=== PATIENT | female | born 1965 | race Caucasian/White ===

== ENCOUNTER 2020-12-08 07:33 | Inpatient (IN) ==
--- NOTE | 2020-11-20 09:01 | PAT Medication Instructions ---
Medication Instructions Date of Service November 20, 2020 Home Medications cetirizine 10 mg PO QAM escitalopram oxalate 10 mg PO QAM montelukast 10 mg PO QAM multivitamin 1 tab PO QAM naproxen 500 mg PO BID PRN simvastatin 10 mg PO HS tizanidine 4 mg PO HS ASK your surgeon for instructions naproxen 500 mg PO BID PRN DO NOT take the morning of surgery cetirizine 10 mg PO QAM montelukast 10 mg PO QAM multivitamin 1 tab PO QAM Take morning of surgery With a small sip of water, OTHERWISE NOTHING TO EAT OR DRINK AFTER MIDNIGHT: escitalopram oxalate 10 mg PO QAM Take evening before surgery simvastatin 10 mg PO HS tizanidine 4 mg PO HS Other Notes If you have any questions please call us at [phone] or [phone] or [phone] or [phone]
--- NOTE | 2020-11-24 11:26 | Anesthesiology Consultation ---
Date of Service November 24, 2020 Assessment & Plan (1) Encounter for pre-operative examination: COVID screening: Per assessment on 11/18: Travel screen negative, no known COVID- 19 positive contacts or current COVID-19 related symptoms. Patient was personally COVID positive 06/2020 ([facility]). Symptoms at time of nasal/chest congestion, decreased smell > resolved. Surgeon arranging preop COVID testing (scheduled 12/01). Awaiting results. Chart Review Chart Review: Acceptable Risk for Surgery and Patient seen in Pre Admission Testing Teaching & Discussion Pre-Anesthesia Teaching/Discussion Notes: Instructed NPO after midnight before surgery,except medications with 15 cc of water. Medication instructions provided according to the PAT guidelines. History Surgery Operation Date: 12/08/20 10:25 Proposed Procedures p L4-L5 Decompression and Fusion, Spinal Cord Monitoring - Oumar Bains, Height/Weight Height: 5 ft 4.5 in Weight: 72.3 kg Allergies Allergy/AdvReac Type Severity Reaction Status Date / Time No Known Allergies Allergy Verified 11/18/20 15:34 Medications Home Medications Medication Instructions Recorded Confirmed Last Taken cetirizine 10 mg PO QAM 11/18/20 11/18/20 Unknown escitalopram oxalate 10 mg PO QAM 11/18/20 11/18/20 Unknown montelukast 10 mg PO QAM 11/18/20 11/18/20 Unknown multivitamin 1 tab PO QAM 11/18/20 11/18/20 Unknown naproxen 500 mg PO BID PRN 11/18/20 11/18/20 Unknown simvastatin 10 mg PO HS 11/18/20 11/18/20 Unknown tizanidine 4 mg PO HS 11/18/20 11/18/20 Unknown Past Medical History Medical History Anxiety Chronic back pain + B/L LE radiculopathy History of COVID-19 Dx 06/2020 ([facility]). Symptoms at time of nasal/chest congestion, decreased smell > resolved Hyperlipidemia Kidney stones Temporomandibular joint disorder + clicking, no locking Exercise / Class Metabolic Activity II 4-5 Yardwork/Stairs/Walk up hill (one flight of stairs (no chest pain, no sob)) Past Family History Family History Mother Family history of diabetes mellitus Past Surgical History Surgical History H/O partial thyroidectomy (for goiter) History of colonoscopy 2017 History of esophagogastroduodenoscopy (EGD) History of hysterectomy History of lithotripsy x2 History of tonsillectomy Past Anesthesia History No Hx of Anesthesia Complications (except PONV) and No Family Hx of Anesthesia Complications History of PONV History of PONV and Hx of Motion Sickness Social History Smoking Status: Never smoker Do You Dip or Chew Tobacco: No Hx Alcohol Use: No Hx Substance Use: No Review of Systems Patient denies chest pain, shortness of breath, dyspnea on exertion, fever, chills, cough, wheezing, palpitations. Physical Exam Vital Signs VITALS BP 117/77 P 88 TEMP 98.9 SP02 96%RA RESP 16 PHYSICAL Full cervical extension range of motion. Full TMJ range of motion. TMD 3 finger breaths Mallampati Score 1 Dentition: intact, + cap (molar) Lungs: clear throughout to auscultation Cardiac: regular rate and rhythm, no murmurs noted Spine: normal Carotid arteries: negative bruit Extremities: no edema Testing Laboratory Results 11/24/20 11:55 11/24/20 11:55 PT 10.3 Seconds (9.0-12.0) 11/24/20 11:55 INR 1.0 (0.9-1.1) 11/24/20 11:55 APTT 25.9 Seconds (21.0-31.0) 11/24/20 11:55 Urine Color Yellow 11/24/20 11:55 Urine Appearance Clear (Clear) 11/24/20 11:55 Urine pH 8.0 (4.5-7.5) H 11/24/20 11:55 Ur Specific [place] 1.020 (1.000-1.030) 11/24/20 11:55 Urine Protein Negative (Negative) 11/24/20 11:55 Urine Glucose (UA) Negative (Negative) 11/24/20 11:55 Urine Ketones Negative (Negative) 11/24/20 11:55 Urine Nitrite Negative (Negative) 11/24/20 11:55 Ur Leukocyte Esterase 2+ (Negative) H 11/24/20 11:55 Urine WBC (Auto) 5-10 /hpf (0-5) H 11/24/20 11:55 Urine RBC (Auto) 0-4 /hpf (0-4) 11/24/20 11:55 U Hyaline Cast (Auto) 0 /lpf (0-5) 11/24/20 11:55 U Epithel Cells (Auto) >30 /lpf (0-5) H 11/24/20 11:55 Urine Bacteria (Auto) Negative (Negative) 11/24/20 11:55 Blood Type O Positive 11/24/20 11:55 Antibody Screen NEGATIVE 11/24/20 11:55 Low WBC > preop testing to be forwarded to PCP for continuity of care* Electrocardiogram Date: 11/24/20 Normal sinus rhythm at 80 bpm. Diffuse minor nonspecific T wave abnormality. Chest X-Ray Date: 11/24/20 Findings: + NAD
--- NOTE | 2020-11-24 12:29 | XRay Report ---
XR chest Pre-admission PA/Lat CLINICAL HISTORY: Preoperative evaluation. COMPARISON STUDY: No previous studies for comparison. FINDINGS: Lung volumes are normal. Lungs are clear. There is no pneumothorax or pleural effusion. Car diac size is normal. Mediastinal contours are normal. There is no evidence for pulmonary edema. IMPRESSION: No acute cardiopulmonary findings. ACT 112: Negative or not required by law. Electronically signed by: Dillon Perez M.D. 11/24/2020 12:28 PM
--- NOTE | 2020-11-24 12:46 | Electrocardiogram Report ---
Test Reason : Blood Pressure : / mmHG Vent. Rate : 080 BPM Atrial Rate : 080 BPM P-R Int : 168 ms QRS Dur : 090 ms QT Int : 398 ms P-R-T Axes : 054 087 050 degrees QTc Int : 459 ms Normal sinus rhythm Diffuse Minor Nonspecific T wave abnormality Abnormal ECG No previous ECGs available Confirmed by Francisco J Finn ([id number]) on 11/24/2020 12:46:18 PM Referred By: Oumar Bains Confirmed By:Francisco J Finn
[2020-11-24 14:03] LABS: Basophils # (auto) 0.03 K/uL (0-0.2); Basophils % (auto) 0.8 %; Eosinophils # (auto) 0.05 K/uL (0-0.5); Eosinophils % (auto) 1.3 %; Hemoglobin 13.8 g/dL (12.0-16.0); Lymphocytes # (auto) 1.52 K/uL (1.2-3.4); Lymphocytes % (auto) 39.6 %; Mean Corpuscular Hemoglobin 30.1 pg (25-34); Mean Corpuscular Hgb Conc 33.7 g/dL (32-36); Mean Corpuscular Volume 89.5 fL (80-100); Mean Platelet Volume 11.4 fL (7.4-10.4); Monocytes # (auto) 0.54 K/uL (0.11-0.59); Monocytes % (auto) 14.1 %; Neutrophils % (auto) 44.2 %; Platelet Count 243 K/uL (130-400); RDW Coefficient of Variation 12.2 % (11.5-14.5); RDW Standard Deviation 39.3 fL (36.4-46.3); Red Blood Count 4.58 M/uL (4.2-5.4); White Blood Count 3.84 K/uL (4.8-10.8)
[2020-11-24 14:17] LABS: BUN Creatinine Ratio 34.5 (10-20); Calcium 9.5 mg/dl (8.5-10.1); Creatinine Clr Calc Pharmacy 84.7 ml/min; Est GFR (African American) 105.7; Est GFR (Non-African American) 91.2; Potassium 3.8 mmol/L (3.5-5.1)
[2020-11-24 14:18] LABS: Appearance Urine Clear (Clear); Bacteria Urine Automated Negative (Negative); Bilirubin Urine Negative (Negative); Blood Urine Negative (Negative); Cast Urine Automated 0 /lpf (0-5); Color Urine Yellow; Epithelial Cell Urine Auto >30 /lpf (0-5); Glucose Urine UA Negative (Negative); Ketones Urine Negative (Negative); Leukocyte Esterase Urine 2+ (Negative); Nitrite Urine Negative (Negative); Protein Urine Negative (Negative); RBC Urine Automated 0-4 /hpf (0-4); Urobilinogen Urine Negative (Negative)
[2020-11-24 14:20] LABS: Partial Thromboplastin Time 25.9 Seconds (21.0-31.0); Prothrombin Time 10.3 Seconds (9.0-12.0)
[~2020-12-08 07:33] MED LIST: ACETAMINOPHEN 1000 MG/100 ML IV IV ONE; ACETAMINOPHEN 500 MG TAB PO SCH; CeleBREX 200 MG CAP PO SCH; GABAPENTIN 600 MG DOSE PO SCH; LIDOCAINE 2% 2 ML VIAL/AMP(20MG/ML) INFIL ONE; ROCURONIUM BROMIDE 10 MG/ML 5 ML VIAL IV ONE; ceFAZolin 1000MG 1,000 MG/7.5 ML SYR IV SCH
--- NOTE | 2020-12-08 08:49 | History & Physical Bridge Note ---
Date of Service December 08, 2020 History & Physical Bridge Note I have examined the patient, reviewed the History & Physical and in the interval since the performance of the History & Physical I have noted the following changes of clinical significance: no changes noted
--- NOTE | 2020-12-08 08:50 | History & Physical Report ---
Date of Service December 08, 2020 Assessment & Plan (1) Neurogenic claudication due to lumbar spinal stenosis: Admission and Anticipated Discharge Date Admission Date: L4-L5 decompression fusion History of Present Illness Chief Complaint: Back and bilateral leg pain Primary Care Provider: Britany Guajardo MD This is a 55-year-old female presents with chronic persistent back and bilateral leg pain. Failing course of nonoperative care is here for surgical intervention. Allergies Allergy/AdvReac Type Severity Reaction Status Date / Time No Known Allergies Allergy Verified 12/08/20 08:07 Home Medications Medication Instructions Recorded Confirmed Type cetirizine 10 mg PO QAM 11/18/20 12/08/20 History escitalopram oxalate 10 mg PO QAM 11/18/20 12/08/20 History montelukast 10 mg PO QAM 11/18/20 12/08/20 History multivitamin 1 tab PO QAM 11/18/20 12/08/20 History naproxen 500 mg PO BID PRN 11/18/20 12/08/20 History simvastatin 10 mg PO HS 11/18/20 12/08/20 History tizanidine 4 mg PO HS 11/18/20 12/08/20 History Past Med/Surg History Medical History Anxiety Chronic back pain + B/L LE radiculopathy History of COVID-19 Dx 06/2020 ([facility]). Symptoms at time of nasal/chest congestion, decreased smell > resolved Hyperlipidemia Kidney stones Temporomandibular joint disorder + clicking, no locking Surgical History H/O partial thyroidectomy (for goiter) History of colonoscopy 2016 History of esophagogastroduodenoscopy (EGD) History of hysterectomy History of lithotripsy x2 History of tonsillectomy Family History Mother Family history of diabetes mellitus Social History (Updated 11/18/20 @ 15:59 by Ange Garza RN) Smoking Status: Never smoker Second Hand Exposure: No; Do You Dip or Chew Tobacco: No; Hx Alcohol Use: No Hx Substance Use: No Preferred Language: Luxembourgish Communication Ability: Effective Weaving Professor Required: No Beliefs That Will Affect Care: None Current Living Situation: Spouse and Family current occupational status: employed current occupation: CLERICAL WORK Other Information That Helps Us Care for You: No Safety Concerns: Feels Safe At This Time Assistive Devices: Contacts and Glasses Assistive Devices Comment: PT WILL WEAR GLASSES DOS Physical Exam Physical Exam: Patient is alert and oriented Heart regular in rhythm Lungs clear to auscultation Results & Data ([facility]) Vital Signs (Past 12 Hours) Vital Signs Temp Pulse Resp BP Pulse Ox 12/08/20 08:03 37 C 82 20 140/81 97
[2020-12-08] MEDS ORDERED: BUPIVACAINE/EPINEPHRINE 0.5% MPF 1:200,000 30 ML VIAL ONE (09:04)
[2020-12-08] MEDS ORDERED: ONDANSETRON INJ 2 MG/ML 2 ML VIAL ONE (09:05)
[2020-12-08] MEDS ORDERED: LIDOCAINE 2% 2 ML VIAL/AMP(20MG/ML) INFIL ONE (09:05)
[2020-12-08] MEDS ORDERED: METOCLOPRAMIDE HCL INJ 5 MG/ML 2 ML VIAL ONE ×2 (09:05→10:19)
[2020-12-08] MEDS ORDERED: MIDAZOLAM HCL 1 MG/ML 2ML VIAL ONE (09:06)
[2020-12-08] MEDS ORDERED: fentaNYL citrate 100 MCG/2 ML VIAL ONE ×2 (09:06→10:58)
[2020-12-08] MEDS ORDERED: ROCURONIUM BROMIDE 10 MG/ML 5 ML VIAL IV ONE (09:07)
[2020-12-08] MEDS ORDERED: SCOPOLAMINE 1 MG TDSY TD ONE (09:17)
[2020-12-08] MEDS ORDERED: PROMETHAZINE HCL 6.25 MG in SODIUM CHLORIDE 0.9% 50 ML IV PRN (09:20)
[2020-12-08] MEDS ORDERED: fentaNYL citrate 100 MCG/2 ML VIAL IV PRN (09:20)
[2020-12-08] MEDS ORDERED: ePHEDrine sulfate 50 MG/ML AMP IV PRN (09:20)
[2020-12-08] MEDS ORDERED: ATROPINE SULFATE 0.1 MG/ML 10ML SYR IV PRN (09:20)
[2020-12-08] MEDS ORDERED: ONDANSETRON INJ 2 MG/ML 2 ML VIAL IV PRN ×2 (09:20→12:32)
[2020-12-08] MEDS ORDERED: FAMOTIDINE/PF 20 MG/2 ML VIAL IV ONE (09:20)
[2020-12-08] MEDS ORDERED: PHENYLEPHRINE 100MCG/ML 5ML SYR ONE (10:03)
[2020-12-08] MEDS ORDERED: ePHEDrine sulfate 50 MG/ML SYR ONE (10:08)
[2020-12-08] MEDS ORDERED: DEXAMETHASONE SOD INJ 4 MG/ML VIAL ONE (10:19)
[2020-12-08] MEDS ORDERED: diphenhydrAMINE 50 MG/ML VIAL ONE (10:19)
[2020-12-08] MEDS ORDERED: HYDROmorphone INJ 2 MG/ML SYR/VIAL ONE (10:21)
[2020-12-08] MEDS ORDERED: KETOROLAC 30 MG/ML VIAL ONE (10:43)
[2020-12-08] MEDS ORDERED: GLYCOPYRROLATE 0.2 MG/ML VIAL ONE (10:54)
[2020-12-08] MEDS ORDERED: NEOSTIGMINE METHYLSULFATE 1 MG/ML 10ML VIAL ONE (10:54)
[2020-12-08] MEDS ORDERED: FLOSEAL HEMOSTATIC MATRIX 10ML TOP ONE (10:55)
--- NOTE | 2020-12-08 10:59 | Operative Report ---
Post Operative Report Pre & Post Diagnosis Operation Date: 12/08/20 09:15 Pre-Op Diagnosis: Lumbar spinal stenosis with neurogenic claudication Spondylolisthesis L4-L5 Post-Op Diagnosis: Same I identified the patient and participated in the time-out.: Yes Procedure Operation Date: 12/08/20 09:15 Actual Procedures #1 Lumbar decompression with bilateral medial facetectomies and foraminotomies L3-4 and L4-5. #2 posterior spinal fusion L4-L5. #3 placement of posterior instrumentation L4-L5. #4 interbody fusion L4-L5. #5 placement peek cage 13 x 22 mm at L4-L5. #6 placement of locally harvested morselized autograft. #7 placement of I factor in the interbody space and posterior gutters combined with vtoss Surgeon Oumar Bains, Tapper Operator Lorraine Vazquez Estimated Blood Loss 150 Findings Consistent with Post-Op Diagnosis Specimens None Indications This is a 55-year-old female who presents with above-mentioned diagnosis after failing since course of nonoperative care is here for surgical intervention. Description of Procedure Patient was met with identified informed consent obtained. Patient was then taken to the operative suite underwent an patient placed in a prone position the Timber table top Madan frame. All bony prominences well-padded eyes inspected to ensure no external pressure placed upon the. This point the lumbar spine was prepped and draped in a sterile fashion. Sharp dissection with the assistance of Bovie cautery performed down to and exposing the lamina and transverse processes of L4 and L5. From a caudal cephalad fashion complete laminectomy of L4 partial laminectomy L3 was performed including bilateral medial facetectomies and foraminotomies addressing severe spinal stenosis. Pedicle screws were then placed in L4 and L5 bilaterally with assistance of fluoroscopy and the process vin placed. By way of a transforaminal approach on the right complete discectomy at L4-L5 was performed endplates curetted to subcortically bone and a 13 x 22 mm peek cage filled I factor tapped in position. The rods were then compressed locked in final position bilaterally. The transverse processes of L4 and L5 burred to subcortical bleeding bone. I factor combined with Vitoss was placed in the posterior gutters. 15 round MANDY drain inserted. The incision was then closed with 1 Vicryl in the fascia 2-0 Vicryl subcutaneously and 4-0 Monocryl for final skin closure. Steri-Strip sterile dressings placed. Patient will continue PACU stable condition. Please note spinal cord monitoring was utilized at the procedure and no changes noted. Lastly Lorraine Vazquez was present at the entire procedure involved the patient positioning complex portions of the surgery and final skin closure. I attest to the content of the Intraoperative Record and any orders documented therein. Any exceptions are noted below.
--- NOTE | 2020-12-08 11:54 | Fluoroscopy Report ---
FL lumbar spine 2-3V CLINICAL HISTORY: L4-L5 PSFL4-L5 decompression and fusion with interbody. COMPARISON STUDY: None. FLUOROSCOPY TIME: 18 seconds. NUMBER OF FLUOROSCOPIC IMAGES: 2 FINDINGS: There are 2 intraoperative fluoroscopic images are presented for review and show laminectomy changes at L4 level, fixating screws and metallic plates at L4-L5 as well as spacer within the L4-5 intervert ebral disc space. IMPRESSION: Postoperative changes as detailed above. ACT 112: Negative or not required by law. Electronically signed by: Nakia Burt DO 12/08/2020 3:37 PM
--- NOTE | 2020-12-08 12:04 | Anesthesiology Progress Note ---
Date of Service December 08, 2020 Anesthesia Post Procedure Vital Signs Vital Signs: Temp Pulse Pulse Resp BP Pulse Ox 12/08/20 11:55 97 H 17 152/78 H 97 12/08/20 11:45 92 H 14 135/74 98 12/08/20 11:35 79 14 136/73 95 12/08/20 11:26 36.4 C L 101 H 12 154/80 H 98 12/08/20 08:03 37 C 82 20 140/81 97 Transfer of Care Handoff Completed per policy Notes Mental Status: alert / awake / arousable Patient Amnestic to Procedure: Yes Nausea / Vomiting: adequately controlled Pain: adequately controlled Airway Patency, RR, SpO2: stable & adequate BP & HR: stable & adequate Hydration State: stable & adequate Anesthetic Complications: no major complications apparent
[2020-12-08] MEDS ORDERED: METOCLOPRAMIDE HCL INJ 5 MG/ML 2 ML VIAL IV PRN (12:32)
[2020-12-08] MEDS ORDERED: ONDANSETRON 4 MG OD TAB PO PRN (12:32)
[2020-12-08] MEDS ORDERED: DO NOT ADMINISTER FLU VACCINE PRN (12:32)
[2020-12-08] MEDS ORDERED: hydrOXYzine HCl 25 MG TAB PO PRN (12:32)
[2020-12-08] MEDS ORDERED: PROMETHAZINE HCL 12.5 MG in SODIUM CHLORIDE 0.9% 50 ML IV PRN (12:32)
[2020-12-08] MEDS ORDERED: LORazepam 0.5 MG/1 ML VIAL IV PRN (12:32)
[2020-12-08] MEDS ORDERED: SOD PHOSPHATE/SOD BIPHOSPHATE ENEMA 132 ML BTL PR PRN (12:32)
[2020-12-08] MEDS ORDERED: FAMOTIDINE 20 MG TAB PO PRN (12:32)
[2020-12-08] MEDS ORDERED: MAGNESIUM HYDROXIDE SUSP 30 ML UDC PO PRN (12:32)
[2020-12-08] MEDS ORDERED: DO NOT ADMINISTER PNEUMOCOCCAL VACCINE PRN (12:32)
[2020-12-08] MEDS ORDERED: LORazepam 0.5 MG TAB PO PRN (12:32)
[2020-12-08] MEDS ORDERED: diphenhydrAMINE Capsule 25 MG CAP PO PRN (12:32)
[2020-12-08] MEDS ORDERED: NALOXONE HCL 0.4 MG/1 ML VIAL/CARP IV PRN (12:32)
[2020-12-08] MEDS ORDERED: ACETAMINOPHEN 1,000 MG/100 ML VIAL IV PRN (12:32)
[2020-12-08] MEDS ORDERED: HYDROmorphone INJ 1 MG/ML SYRINGE IV PRN (12:32)
[2020-12-08] MEDS ORDERED: ACETAMINOPHEN 500 MG TAB PO PRN (12:32)
[2020-12-08] MEDS ORDERED: HYDROmorphone INJ 0.5 MG/0.5 ML SYR IV PRN (12:32)
[2020-12-08] MEDS ORDERED: bisacodyL 10 MG SUPP PR PRN (12:32)
[2020-12-08] MEDS ORDERED: ALUMINUM/MAGNESIUM SUSP 30 ML UDC PO PRN (12:32)
[2020-12-08] MEDS: LACTATED RINGER'S 1,000 ML IV SCH ×2 (13:19→23:13)
--- NOTE | 2020-12-08 13:28 | Hospitalist Consultation ---
Date of Consultation December 08, 2020 Assessment & Plan (1) Neurogenic claudication due to lumbar spinal stenosis: Patient doing well postoperatively although still mildly sedated. Holding her tizanidine as mentioned she stopped taking it a few days ago. (2) Hyperlipidemia: Patient remains on Zocor 10 (3) Anxiety: Apically take some Lexapro which will be continued (4) Allergic bronchitis: Patient is continued on Zyrtec and Singulair at this time she is asymptomatic from a pulmonary standpoint (5) History of COVID-19: Patient diagnosed with Covid July 13, 2020 all symptoms have resolved. History of Present Illness Attending Physician: Oumar Bains DO Patient is seen postoperatively for an L4-5 decompression fusion spinal cord monitoring and application of bone graft performed on 12/08/2020 Patient was still having the aftereffects of anesthesia up in her room but she is stable vital signs and was able to be awoken and answer questions. She did relate to me that she is no longer taking her tizanidine for last few weeks as she ran out of her prescription. This will be discontinued on her medications. Allergies Allergy/AdvReac Type Severity Reaction Status Date / Time No Known Allergies Allergy Verified 12/08/20 08:07 Home Medications Medication Instructions Recorded Confirmed Type cetirizine 10 mg PO QAM 11/18/20 12/08/20 History escitalopram oxalate 10 mg PO QAM 11/18/20 12/08/20 History montelukast 10 mg PO QAM 11/18/20 12/08/20 History multivitamin 1 tab PO QAM 11/18/20 12/08/20 History naproxen 500 mg PO BID PRN 11/18/20 12/08/20 History simvastatin 10 mg PO HS 11/18/20 12/08/20 History tizanidine 4 mg PO HS 11/18/20 12/08/20 History Patient History Medical History (Updated 12/08/20 @ 13:27 by Gilson Velazquez MD) Anxiety Chronic back pain + B/L LE radiculopathy History of COVID-19 Dx 06/2020 ([facility]). Symptoms at time of nasal/chest congestion, decreased smell > resolved Hyperlipidemia Kidney stones Temporomandibular joint disorder + clicking, no locking Surgical History H/O partial thyroidectomy (for goiter) History of colonoscopy 2017 History of esophagogastroduodenoscopy (EGD) History of hysterectomy History of lithotripsy x2 History of tonsillectomy Family History Mother Family history of diabetes mellitus Social History (Updated 11/18/20 @ 15:59 by Ange Garza RN) Smoking Status: Never smoker Second Hand Exposure: No; Do You Dip or Chew Tobacco: No; Hx Alcohol Use: No Hx Substance Use: No Preferred Language: Chinese Communication Ability: Effective Recreational Director Required: No Beliefs That Will Affect Care: None Current Living Situation: Spouse and Family current occupational status: employed current occupation: CLERICAL WORK Other Information That Helps Us Care for You: No Safety Concerns: Feels Safe At This Time Assistive Devices: Contacts and Glasses Assistive Devices Comment: PT WILL WEAR GLASSES DOS Review of Systems Review of Systems: Patient appeared to be still with effects of anesthesia with fatigue falling asleep easily. She says her back pain was 3 out of 10 no headache, blurry or double vision no speech or swallowing issues no chest pain, pressure or palpitations no shortness of breath, cough or wheezes no abdominal pain, nausea or vomiting, diarrhea or constipation no dysuria, hematuria or frequency no focal joint pain or swelling 3/10 back pain without radiation of symptoms, no CVA tenderness no bruising, bleeding or rashes no focal signs of weakness or numbness or altered sensation no complaints of anxiety or depression.. Physical Exam Physical Exam: The patient appeared well nourished and normally developed. Vital signs as documented. Head exam is normocephalic atraumatic Neck is without JVD, thyromegaly, or carotid bruits. Lungs are clear to auscultation, no focal loss of breath sounds Cardiac exam, Rhythm is regular.. No murmurs, rubs or gallops. Abdominal exam reveals normal bowel sounds, soft non tender, no masses Extremities are nonedematous and both pedal pulses are present Neurologic exam is alert and oriented x3 but falls asleep easily, no focal loss of strength or sensation Was unable to inspect the surgical site Psychologically is without concerns for anxiety or depression Results & Data Results & Data ([facility]) Vital Signs (Past 12 Hours) Vital Signs Temp Pulse Pulse Resp BP Pulse Ox 12/08/20 13:00 97.5 F L 100 H 12 134/78 100 12/08/20 12:30 97.7 F 101 H 12 147/74 H 96 12/08/20 12:15 94 H 12 139/82 95 12/08/20 12:05 97.0 F L 93 H 12 158/76 H 94 12/08/20 11:55 97 H 17 152/78 H 97 12/08/20 11:45 92 H 14 135/74 98 12/08/20 11:35 79 14 136/73 95 12/08/20 11:26 97.5 F L 101 H 12 154/80 H 98 12/08/20 08:03 98.6 F 82 20 140/81 97 review chest rate x-ray is unremarkable review of EKG shows sinus rhythm with flattened T waves in the anterior leads no old to compare PG Care Time/CCT Total # of Minutes Spent Total Time Spent with Patient: Total time spent is greater than 50% in coordi nation of care (as documented) at patient's floor/unit and/or counseling patient: Coding Level of Care Code 91318 Inpt Consult Level 3 Diagnoses Neurogenic claudication due to lumbar spinal stenosis M48.062 Hyperlipidemia E78.5 Anxiety F41.9 Allergic bronchitis J45.909 History of COVID-19 Z86.16
[2020-12-08] MEDS: ceFAZolin 2000MG 2,000 MG/15 ML SYR IV SCH (17:36)
[2020-12-08] MEDS: KETOROLAC TROMETHAMINE 15 MG/ML VIAL IV SCH ×2 (18:39→23:28)
[2020-12-08] MEDS: DOCUSATE SODIUM/SENNA 50/8.6MG TAB PO SCH (20:56)
[2020-12-08] MEDS ORDERED: tiZANidine HCL 4 MG TABLET PO SCH (21:00)
[2020-12-08] MEDS ORDERED: SIMVASTATIN 10 MG TAB PO SCH (21:00)
[2020-12-08] MEDS: HYDROCODONE/ACETAMOPHEN 5/325MG TAB PO PRN (23:15)
[2020-12-09] MEDS: ceFAZolin 2000MG 2,000 MG/15 ML SYR IV SCH (01:53)
[2020-12-09] MEDS: traMADol HCL 50 MG TABLET PO PRN ×2 (06:02→21:08)
[2020-12-09] MEDS: KETOROLAC TROMETHAMINE 15 MG/ML VIAL IV SCH ×2 (06:03→11:36)
[2020-12-09] MEDS: POLYETHYLENE (MIRALAX) 17 GM PACK PO SCH ×4 (06:03→23:00)
[2020-12-09 06:56] LABS: Basophils # (auto) 0.01 K/uL (0-0.2); Basophils % (auto) 0.1 %; Hematocrit (blood only) 35.4 % (37-47); Hemoglobin 11.7 g/dL (12.0-16.0); Immature Granulocytes # (auto) 0.01 K/uL (0.00-0.02); Immature Granulocytes % (auto) 0.1 %; Lymphocytes # (auto) 1.04 K/uL (1.2-3.4); Mean Corpuscular Hemoglobin 30.2 pg (25-34); Mean Corpuscular Hgb Conc 33.1 g/dL (32-36); Mean Corpuscular Volume 91.5 fL (80-100); Monocytes # (auto) 0.82 K/uL (0.11-0.59); Monocytes % (auto) 8.7 %; Neutrophils # (auto) 7.57 K/uL (1.4-6.5); Neutrophils % (auto) 80.1 %; Platelet Count 214 K/uL (130-400); RDW Coefficient of Variation 12.2 % (11.5-14.5); RDW Standard Deviation 40.8 fL (36.4-46.3); Red Blood Count 3.87 M/uL (4.2-5.4); White Blood Count 9.45 K/uL (4.8-10.8)
[2020-12-09 07:31] LABS: BUN Creatinine Ratio 21.1 (10-20); Calcium 8.2 mg/dl (8.5-10.1); Creatinine Clr Calc Pharmacy 92.6 ml/min; Est GFR (African American) 114.7 ml/min; Potassium 3.9 mmol/L (3.5-5.1)
--- NOTE | 2020-12-09 08:26 | Hospitalist Progress Note ---
Date of Service December 09, 2020 Assessment & Plan (1) Neurogenic claudication due to lumbar spinal stenosis: * POD# 1 s/p #1 Lumbar decompression with bilateral medial facetectomies and foraminotomies L3-4 and L4-5. #2 posterior spinal fusion L4-L5. #3 placement of posterior instrumentation L4-L5. #4 interbody fusion L4-L5. #5 placement peek cage 13 x 22 mm at L4-L5. #6 placement of locally harvested morselized autograft. #7 placement of I factor in the interbody space and posterior gutters combined with vtoss with Dr. Bains on 12/08 * Pre-op h/h 13.8/41.0 * EBL 150cc * MANDY output 240cc * H/h 11.7/35.4 -- acute blood loss anemia from surgery and dilutional from IVF * Dose of tizanidine now and will order prn given spasm/sciatica and hx of use * Will ask Dr. Bains about using heat and order Kpad if needed * PT/OT/pain management/DVT prophylaxis per primary service * --> Of note, not able to really tolerate Percocet or Vicodin but has tolerated tylenol with codeine and is currently using IV toradol and PO tramadol with adequate control -- anticipate tramadol for PO pain control at d/c (2) Hyperlipidemia: * Patient remains on Zocor 10 -- changed to zocor as she was ordered atorvastatin (3) Anxiety: * Continue Lexapro (4) Allergic bronchitis: * Patient is continued on Zyrtec and Singulair at this time she is asymptomatic from a pulmonary standpoint (5) History of COVID-19: * Patient diagnosed with Covid July 13, 2020 all symptoms have resolved. Plans on continued inpatient stay until Tuesday/ per her discussion with primary service this morning. Thank you for allowing hospitalist service to participate in the care of Ms Kemp. Hospitalist service will follow along. Admission and Anticipated Discharge Date Admission Date: December 08, 2020 Subjective Patient evaluated this morning. Pain controlled with exception of sciatic type pain to her R buttock, about her usual level of sciatica. She typically uses heat at home and Zanaflex but she had not filled her prescription prior to admission but if needed could have her refill. Typically utilized 4mg for sleep and extra as needed. Will order dose now and have available prn. Of note, she states she has been unable to tolerate Percocet or Vicodin in the past and is inquiring about control at discharge. Discussed tramadol -- currently ordered and working. Discussed heat to area -- will ok with Dr. Bains prior to ordering. No fever, chills, chest pain, shortness of breath, abdominal pain. Passing gas but no BM but she does feel like she has to move her bowels currently and will get nursing to assist. MANDY emptied 1-2 times this morning already. Worked with therapy today but still with questions about how to wipe without twisting -- will have help her acute period. Questions/concerns addressed at this time. Review of Systems Review of Systems: All systems reviewed & are unremarkable except as noted in HPI & below Physical Exam Physical Exam: The patient appeared well nourished and normally developed. Sitting up in chair, NAD Head exam is normocephalic atraumatic Neck is without JVD, thyromegaly, or carotid bruits. Lungs are CTAB, no w/c/r. no cough, not tachypneic Cardiac exam, RRR, no r/m/g, no edema, cap refill <3 seconds Abd: BS+, non-tender, non-distended Extremities are nonedematous and both pedal pulses are present, dressing to lumbar spine c/d/i. MANDY with 50cc bloody drainage. NVI, pulses palpable bi laterally, calves non-tender. equal strength dorsiflexion/plantar flexion. Increased pain to R buttock with leg raise Neuro: no focal deficit Psych: AOx3 Results & Data Results & Data ([facility]) Vital Signs (Past 12 Hours) Vital Signs Temp Pulse Resp BP Pulse Ox 12/09/20 08:05 36.5 C 64 16 115/71 98 12/09/20 03:03 36.9 C 70 18 110/68 96 12/08/20 22:52 36.9 C 70 18 114/72 93 Laboratory Results 12/09/20 12/09/20 12/08/20 Range/Units 06:20 06:20 Unknown WBC 9.45 (4.8-10.8) K/uL RBC 3.87 L (4.2-5.4) M/uL Hgb 11.7 L (12.0-16.0) g/dL Hct 35.4 L (37-47) % MCV 91.5 (80-100) fL MCH 30.2 (25-34) pg MCHC 33.1 (32-36) g/dL RDW Std Deviation 40.8 (36.4-46.3) fL RDW Coeff of Madina 12.2 (11.5-14.5) % Plt Count 214 (130-400) K/uL MPV 11.0 H (7.4-10.4) fL Immature Gran % (Auto) 0.1 % Neut % (Auto) 80.1 % Lymph % (Auto) 11.0 % Waldo % (Auto) 8.7 % Eos % (Auto) 0.0 % Baso % (Auto) 0.1 % Neut # (Auto) 7.57 H (1.4-6.5) K/uL Lymph # (Auto) 1.04 L (1.2-3.4) K/uL Waldo # (Auto) 0.82 H (0.11-0.59) K/uL Eos # (Auto) 0.00 (0-0.5) K/uL Baso # (Auto) 0.01 (0-0.2) K/uL Immature Gran # (Auto) 0.01 (0.00-0.02) K/uL Sodium 140 (136-145) mmol/L Potassium 3.9 (3.5-5.1) mmol/L Chloride 106 (98-107) mmol/L Carbon Dioxide 30 (21-32) mmol/L Anion Gap 4.0 (3-11) BUN 14 (7-18) mg/dl Creatinine 0.67 (0.6-1.2) mg/dl Est Cr Clr Drug Dosing 92.6 ml/min Est GFR ( Amer) 114.7 ml/min Est GFR (Non-Af Amer) 99.0 ml/min BUN/Creatinine Ratio 21.1 H (10-20) Glucose 177 H (70-99) mg/dl Calcium 8.2 L (8.5-10.1) mg/dl SARS-CoV-2, RNA, NAAT NEGATIVE (NEGATIVE) PG Care Time/CCT Total # of Minutes Spent Total Time Spent with Patient: Total time spent is greater than 50% in coordination of care (as documented) at patient's floor/unit and/or counseling patient: Coding Level of Care Code 88944 Subseq Obs Care Lvl 3 Diagnoses Neurogenic claudication due to lumbar spinal stenosis M48.062 Hyperlipidemia E78.5 Anxiety F41.9 Allergic bronchitis J45.909 History of COVID-19 Z86.16
[2020-12-09] MEDS: ESCITALOPRAM OXALATE 10 MG TAB PO SCH (08:36)
[2020-12-09] MEDS: CETIRIZINE HCL 10 MG TABLET PO SCH (08:36)
[2020-12-09] MEDS: MONTELUKAST SODIUM 10 MG TABLET PO SCH (08:36)
[2020-12-09] MEDS: MULTIVITAMIN TAB PO SCH (08:36)
[2020-12-09] MEDS ORDERED: ATORVASTATIN 20 MG TAB PO SCH (09:00)
[2020-12-09] MEDS ORDERED: tiZANidine HCL 4 MG TABLET PO PRN (12:14)
[2020-12-09] MEDS ORDERED: tiZANidine HCL 4 MG TABLET PO ONE (12:30)
--- NOTE | 2020-12-09 13:02 | Orthopedic Progress Note ---
Date of Service December 09, 2020 Assessment & Plan (1) Neurogenic claudication due to lumbar spinal stenosis: Admission and Anticipated Discharge Date Admission Date: December 08, 2020 At this time we will continue physical therapy monitor her MANDY output she may use ice for buttock and leg pain. We will hopefully progress in the next few days to discharge home. Subjective Patient complaining of back pain and some left sciatica. Physical Exam Physical Exam: On exam she appears comfortable. She is in the chair at the bedside. Is good strength testing. Results & Data ([facility]) Vital Signs (Past 12 Hours) Vital Signs Temp Pulse Resp BP Pulse Ox 12/09/20 08:05 36.5 C 64 16 115/71 98 12/09/20 03:03 36.9 C 70 18 110/68 96
[2020-12-09] MEDS: HYDROCODONE/ACETAMOPHEN 5/325MG TAB PO PRN ×2 (17:25→23:18)
[2020-12-09] MEDS ORDERED: SODIUM CHLORIDE 0.9% 500 ML IV SCH (18:45)
[2020-12-09] MEDS: DOCUSATE SODIUM/SENNA 50/8.6MG TAB PO SCH (21:00)
[2020-12-10] MEDS: POLYETHYLENE (MIRALAX) 17 GM PACK PO SCH ×3 (05:50→17:54)
[2020-12-10] MEDS: traMADol HCL 50 MG TABLET PO PRN ×3 (07:42→16:53)
[2020-12-10] MEDS: MULTIVITAMIN TAB PO SCH (07:42)
[2020-12-10] MEDS: CETIRIZINE HCL 10 MG TABLET PO SCH (07:43)
[2020-12-10] MEDS: MONTELUKAST SODIUM 10 MG TABLET PO SCH (07:43)
[2020-12-10] MEDS: dexAMETHasone 8 MG in SYRINGE 0 ML IV SCH (07:43)
[2020-12-10] MEDS: ESCITALOPRAM OXALATE 10 MG TAB PO SCH (07:43)
--- NOTE | 2020-12-10 09:37 | Hospitalist Progress Note ---
Date of Service December 10, 2020 Assessment & Plan (1) Neurogenic claudication due to lumbar spinal stenosis: * POD# 2 s/p #1 Lumbar decompression with bilateral medial facetectomies and foraminotomies L3-4 and L4-5. #2 posterior spinal fusion L4-L5. #3 placement of posterior instrumentation L4-L5. #4 interbody fusion L4-L5. #5 placement peek cage 13 x 22 mm at L4-L5. #6 placement of locally harvested morselized autograft. #7 placement of I factor in the interbody space and posterior gutters combined with vtoss with Dr. Bains on 12/08 * Pre-op h/h 13.8/41.0. EBL 150cc * MANDY output 240cc + 120cc * H/h 11.7/35.4 post-op -- acute blood loss anemia from surgery and dilutional from IVF * --> repeat h/h improved to 11.9/36.4 * Dose of tizanidine 12/09 with relief and will order prn given spasm/sciatica and hx of use * Will ask Dr. Bains about using heat and order Kpad if needed --> to use ice if needed * PT/OT/pain management/DVT prophylaxis per primary service * --> Of note, not able to really tolerate Percocet or Vicodin but has tolerated tylenol with codeine and is currently using IV toradol and PO tramadol with adequate control -- anticipate tramadol for PO pain control at d/c (2) Hyperlipidemia: * Patient remains on Zocor 10 -- changed to zocor as she was ordered atorvastatin (3) Anxiety: * Continue Lexapro (4) Allergic bronchitis: * Patient is continued on Zyrtec and Singulair at this time she is asymptomatic from a pulmonary standpoint. 94% on RA (5) History of COVID-19: * Patient diagnosed with Covid July 13, 2020 all symptoms have resolved. Plans for d/c tomorrow per patient. Thank you for allowing hospitalist service to participate in the care of Ms Kemp. Hospitalist service will follow along with chart check. Admission and Anticipated Discharge Date Admission Date: December 08, 2020 Supervising Physician Co-Signing Physician Notes PA Supervision Note: I did not personally see or examine the patient today, but I verified all bains points of RICARDO Chavez's assessment and plan with the following exceptions/additions: None Subjective Patient seen this morning. Pain better controlled. Passing gas today but no BM. Did just get miralax. Has had issues with constipation in past after surgery after going 6-7 days. She states she is not having pain and would prefer to hold off on suppository. Discussed will have nursing mix "slurry" and have suppositories available in case they are needed. Encouraged more frequent ambulation. Sciatica pain resolved with zanaflex. Can use prn. Pain controlled with tramadol currently. Still has some numbness to LLE but improving. No fever, chills, chest pain, shortness of breath, abdominal pain ,nausea or vomiting at this time. Questions/concerns addressed. Review of Systems Review of Systems: All systems reviewed & are unremarkable except as noted in HPI & below Physical Exam Physical Exam: The patient appeared well nourished and normally developed. Sitting up in chair, NAD Head exam is normocephalic atraumatic Neck is without JVD, thyromegaly, or carotid bruits. Lungs are CTAB, no w/c/r. no cough, not tachypneic Cardiac exam, RRR, no r/m/g, no edema, cap refill <3 seconds Abd: BS+, non-tender, non-distended Extremities are nonedematous and both pedal pulses are present, dressing to lumbar spine c/d/i. MANDY with 20cc serosanguineous drainage. NVI, pulses palpable bilaterally, calves non-tender. equal strength dorsiflexion/plantar flexion. Neuro: no focal deficit Psych: AOx3 Results & Data Results & Data ([facility]) Vital Signs (Past 12 Hours) Vital Signs Temp Pulse Resp BP Pulse Ox 12/10/20 06:22 36.7 C 69 14 109/67 94 12/09/20 23:12 36.7 C 59 L 15 102/65 94 Laboratory Results 12/10/20 12/10/20 Range/Units 09:47 09:47 WBC 6.59 (4.8-10.8) K/uL RBC 3.89 L (4.2-5.4) M/uL Hgb 11.9 L (12.0-16.0) g/dL Hct 36.4 L (37-47) % MCV 93.6 (80-100) fL MCH 30.6 (25-34) pg MCHC 32.7 (32-36) g/dL RDW Std Deviation 43.3 (36.4-46.3) fL RDW Coeff of [place] 12.8 (11.5-14.5) % Plt Count 211 (130-400) K/uL MPV 10.7 H (7.4-10.4) fL Sodium 141 (136-145) mmol/L Potassium 4.0 (3.5-5.1) mmol/L Chloride 107 (98-107) mmol/L Carbon Dioxide 32 (21-32) mmol/L Anion Gap 2.0 L (3-11) BUN 19 H (7-18) mg/dl Creatinine 0.76 (0.6-1.2) mg/dl Est Cr Clr Drug Dosing 81.6 ml/min Est GFR ( Amer) 102.3 ml/min Est GFR (Non-Af Amer) 88.3 ml/min BUN/Creatinine Ratio 24.4 H (10-20) Glucose 154 H (70-99) mg/dl Calcium 9.0 (8.5-10.1) mg/dl PG Care Time/CCT Total # of Minutes Spent Total Time Spent with Patient: Total time spent is greater than 50% in coordination of care (as documented) at patient's floor/unit and/or counseling patient: Coding Level of Care Code 86811 Subseq Hosp Care Lvl 2 Diagnoses Neurogenic claudication due to lumbar spinal stenosis M48.062 Hyperlipidemia E78.5 Anxiety F41.9 Allergic bronchitis J45.909 History of COVID-19 Z86.16
[2020-12-10 10:09] LABS: Hematocrit (blood only) 36.4 % (37-47); Hemoglobin 11.9 g/dL (12.0-16.0); Mean Corpuscular Hemoglobin 30.6 pg (25-34); Mean Corpuscular Hgb Conc 32.7 g/dL (32-36); Mean Corpuscular Volume 93.6 fL (80-100); Mean Platelet Volume 10.7 fL (7.4-10.4); Platelet Count 211 K/uL (130-400); RDW Coefficient of Variation 12.8 % (11.5-14.5); RDW Standard Deviation 43.3 fL (36.4-46.3); Red Blood Count 3.89 M/uL (4.2-5.4); White Blood Count 6.59 K/uL (4.8-10.8)
--- NOTE | 2020-12-10 10:32 | Orthopedic Progress Note ---
Date of Service December 10, 2020 Assessment & Plan (1) Neurogenic claudication due to lumbar spinal stenosis: Admission and Anticipated Discharge Date Admission Date: December 08, 2020 This time continue physical therapy monitor MANDY output anticipate discharge home tomorrow. Subjective Back pain controlled leg symptoms improving. Physical Exam Physical Exam: Patient is standing and ambulating without difficulty. The strength testing. Results & Data ([facility]) Vital Signs (Past 12 Hours) Vital Signs Temp Pulse Resp BP Pulse Ox 12/10/20 06:22 36.7 C 69 14 109/67 94 12/09/20 23:12 36.7 C 59 L 15 102/65 94
[2020-12-10 10:41] LABS: BUN Creatinine Ratio 24.4 (10-20); Creatinine Clr Calc Pharmacy 81.6 ml/min; Est GFR (African American) 102.3 ml/min; Est GFR (Non-African American) 88.3 ml/min
[2020-12-10] MEDS ORDERED: ATORVASTATIN 20 MG TAB PO SCH (21:00)
[2020-12-10] MEDS ORDERED: SIMVASTATIN 10 MG TAB PO SCH (21:00)
[2020-12-10] MEDS: DOCUSATE SODIUM/SENNA 50/8.6MG TAB PO SCH ×2 (21:05→21:06)
[2020-12-10] MEDS: HYDROCODONE/ACETAMOPHEN 5/325MG TAB PO PRN (21:07)
[2020-12-11] MEDS: traMADol HCL 50 MG TABLET PO PRN ×2 (05:53→11:24)
[2020-12-11 07:16] LABS: BUN Creatinine Ratio 23.2 (10-20); Calcium 9.1 mg/dl (8.5-10.1); Creatinine Clr Calc Pharmacy 87.4 ml/min; Est GFR (African American) 111.1 ml/min; Est GFR (Non-African American) 95.9 ml/min; Potassium 3.4 mmol/L (3.5-5.1)
[2020-12-11] MEDS: ESCITALOPRAM OXALATE 10 MG TAB PO SCH (07:44)
[2020-12-11] MEDS: CETIRIZINE HCL 10 MG TABLET PO SCH (07:44)
[2020-12-11] MEDS: MULTIVITAMIN TAB PO SCH (07:44)
[2020-12-11] MEDS: dexAMETHasone 8 MG in SYRINGE 0 ML IV SCH (07:44)
[2020-12-11] MEDS: MONTELUKAST SODIUM 10 MG TABLET PO SCH (07:44)
[2020-12-11 07:53] LABS: Estimated Average Glucose 123 mg/dl; Hemoglobin A1C 5.9 % (4.5-5.6)
--- NOTE | 2020-12-11 08:35 | Discharge Summary ---
Date of Service December 11, 2020 Admission HPI Per Admitting Provider This is a 55-year-old female presents with chronic persistent back and bilateral leg pain. Failing course of nonoperative care is here for surgical intervention. Principal Diagnosis Lumbar spinal stenosis with neurogenic claudication Discharge Data Allergies Allergy/AdvReac Type Severity Reaction Status Date / Time No Known Allergies Allergy Verified 12/08/20 08:07 Consultations 12/08/20 12:44 Consult Hospitalist Routine Procedures Performed Operation Date: 12/08/20 09:15 Actual Procedures p L4-L5 Decompression and Fusion, Spinal Cord Monitoring, Application of Bone Graft - Oumar Bains DO Ordered Studies 12/08/20 [place] lumbar spine 2-3V Routine Hospital Course (1) Neurogenic claudication due to lumbar spinal stenosis: Patient with lumbar decompression fusion tolerates well second orthopedic for postoperative. Postop day 1 she was up and ambulating progressed to postop day #2 on postop day #3 MANDY drain decreased probably. Pain well controlled. Subsequent discharge home. Discharge orders instructions from the chart for further review. Total Time Total Time Spent Total Time Spent (In Minutes): 20 minutes Discharge Plan Discharge Items Patient Disposition: Home - Self-Care Reason For Visit: Low Back Pain Discharge Diagnosis: Lumbar spinal stenosis with neurogenic claudication Activity: As commented below Non-emergency contact: Primary Care Provider Call non-emergency contact if: you have any medication questions Follow-up/Referrals: Britany Guajardo MD [Primary Care Provider] - Diet: Regular Addtl Attending Provider Instructions: ACTIVITY RECOMMENDATIONS: SELF CARE INSTRUCTIONS AFTER THORACIC/LUMBAR FUSIONS 1. You may walk to your tolerance. It is good exercise for your legs and back. Expect some back and intermittent leg aches and pains. 2. You may perform "counter-top" level activities (make a sandwich, kamlesh with a project, etc.). 3. No bending or lifting of more than 10 pounds or back twisting of any nature (roll like a log when turning in bed). 4. You may ride in a car for 20-30 minutes at a time. No driving until after your first visit with your doctor. 5. Frequent changes of position and restricting sitting to 30 minutes at a time will help limit the amount of back spasms and stiffness you may experience. 6. You may discontinue the use of ambulatory aids (cane, crutches, etc.) once your strength and confidence allow. 7. You may drilling fluids specialist the shower and let water strike your incision when you arrive home at least once daily. Do not take a tub bath, sit in a hot tub or go into a swimming pool until after your first recheck in the office. SPECIAL CARE INSTRUCTIONS: VERY IMPORTANT TO READ AND REVIEW A. Your surgical incision has been closed with a cosmetic suture under the skin that will dissolve in about 6 weeks. In 14 days, you can use a pair of clean scissors and cut the suture that is left outside of the skin at the ends of your incision. 1. The small skin tapes can be removed 7 days after surgery if they have not fallen off by that point. 2. You may keep the wound open to air as much as possible to promote healing after post-op day number 5 unless told otherwise by your doctor. 3. If you think the wound looks like it is becoming infected (redness or worsening drainage) and/or you are experiencing fever, chill or worsening back pain and muscle spasms, contact the office so that we may evaluate you as soon as possible. B. Complications are uncommon, but please contact us if you have any signs or symptoms of: 1. wound infection (fever higher than 102.5 degrees F, redness, separation of wound, drainage, or increasing pain from the incision) 2. blood clots in legs (pain, swelling, redness and warmth in legs) 3. urinary tract infection (fever higher than 102.5 degrees F, burning upon urination or increased frequency of urination) 4. nerve problems (inability to walk on your toes or heels, numbness, loss of bowel or bladder control) 5. any other symptoms that concern you C. Please call the office at if you have any concerns or questions about your operation or recovery. D. No smoking! Smoking drastically decreases the chance of a solid fusion. E. Do not take any anti-inflammatory medications (Indocin, Advil, Motrin, Aspirin, Naprosyn, etc.) as these may inhibit the chance of a solid fusion. Tylenol is okay to take for pain. MANAGING PAIN AFTER SPINAL SURGERY 1. Narcotic medication is intended for short-term use and will be provided for surgical pain. Surgical pain usually lasts for a period of 4-6 weeks. Narcotic medication includes Percocet, Vicodin, Darvocet, Tylenol #3 or Lortab. 2. Longer-term pain is more appropriately treated with non-narcotic medication such as Tylenol ES. 3. Muscle spasm is not appropriately treated with narcotics. Muscle relaxers such as Soma, Flexeril or Skelaxin can be used along with Tylenol ES. 4. Remember that we all live with some "aches and pains". This is not unusual or uncommon after an injury or as we get older. a. Back pain is expected and may include muscle spasms for 4 to 6 weeks after surgery. The pain should gradually improve. If the pain worsens for no apparent reason, please contact the office. b. Intermittent leg pain may also be experienced and should not be concerned about unless it worsens for no apparent reason. If so, please contact the office. 5. We will provide appropriate medication within the normal guidelines of their prescribed use. We will also be very cautious and aware of potential abuse and extended duration of patients' medication needs. a. Pain medications are for your comfort and to assist with sleep and rest so that the tissue can heal. They are not provided in order to return to normal activity and should not be used through the day. To do so or worsening pain at night can result from ongoing tissue damage and development of tolerance to the prescribed medicine. 6. Please allow 2-3 days to process refills. Prescriptions will not be mailed but must be picked up at the office. FOLLOW UP VISIT: Keep your scheduled follow-up appointment. Any questions, please call the office at . Pending Studies at Discharge: No Stand-Alone Forms: My [facility] [employer], Smoking Cessation Medications and DC Order Prescriptions: New hydrocodone-acetaminophen 5-325 mg tablet See Rx Instructions .ROUTE .COMPLEX PRN (Reason: pain) Qty: 30 RF: 0 tramadol 50 mg tablet 50 mg PO Q6H PRN (Reason: pain, moderate) Qty: 30 RF: 0 Continued multivitamin Tablet 1 tab PO QAM RF: 0 montelukast 10 mg Tablet 10 mg PO QAM RF: 0 escitalopram oxalate 10 mg Tablet 10 mg PO QAM RF: 0 tizanidine 4 mg Capsule 4 mg PO HS RF: 0 cetirizine 10 mg Capsule 10 mg PO QAM RF: 0 Discontinued naproxen 500 mg Tablet 500 mg PO BID PRN (Reason: Pain) RF: 0 No Action atorvastatin 20 mg Tablet 20 mg PO HS RF: 0 Discharge Orders: Discharge Order (Routine); Ordered 12/11/20 Ordered By: Oumar Bains Admission Data Admit Date/Time: 12/08/20 11:41 Attending Provider: Oumar Bains Admit Provider: Oumar Bains Primary Care Provider: Britany Guajardo Other Providers: Sunitha Brink
[2020-12-11] MEDS ORDERED: POTASSIUM CHLORIDE CRTAB 20 MEQ TABCR PO STA (09:19)
[2020-12-11] MEDS ORDERED: LORATADINE 10 MG TAB PO ONE (11:33)
[2020-12-11] MEDS ORDERED: ALBUTEROL HFA 8 GM INHALER INH ONE (11:33)
--- NOTE | 2020-12-11 11:43 | Hospitalist Progress Note ---
Date of Service December 11, 2020 Assessment & Plan (1) Neurogenic claudication due to lumbar spinal stenosis: * POD# 3 s/p #1 Lumbar decompression with bilateral medial facetectomies and foraminotomies L3-4 and L4-5. #2 posterior spinal fusion L4-L5. #3 placement of posterior instrumentation L4-L5. #4 interbody fusion L4-L5. #5 placement peek cage 13 x 22 mm at L4-L5. #6 placement of locally harvested morselized autograft. #7 placement of I factor in the interbody space and posterior gutters combined with vtoss with Dr. Bains on 12/08 * Pre-op h/h 13.8/41.0. EBL 150cc * MANDY output 240cc + 120cc * H/h 11.7/35.4 post-op -- acute blood loss anemia from surgery and dilutional from IVF * --> repeat h/h improved to 11.9/36.4 * Dose of tizanidine 12/09 with relief and will order prn given spasm/sciatica and hx of use * Will ask Dr. Bains about using heat and order Kpad if needed --> to use ice if needed * PT/OT/pain management/DVT prophylaxis per primary service * --> Of note, not able to really tolerate Percocet or Vicodin but has tolerated tylenol with codeine and is currently using IV toradol and PO tramadol with adequate control -- anticipate tramadol for PO pain control at d/c (2) Hyperlipidemia: * Patient remains on Zocor 10 -- changed to zocor as she was ordered atorvastatin and continued at d/c (3) Anxiety: * Continue Lexapro (4) Allergic bronchitis: * Patient is continued on Zyrtec and Singulair at this time she is asymptomatic from a pulmonary standpoint. 92% on RA * Ordered and sent rx for albuterol HFA. Extra dose of antihistamine today * Lung CTAB, no sob. Rec continued use of incentive spirometer at d/c (5) Pre-diabetes: a1c checked for elevated glucose on BMP A1c 5.9 -- pre-dM will need f/u with PCP for further monitoring. follow healthier diet/limit carbs/etc (6) History of COVID-19: * Patient diagnosed with Covid July 13, 2020 all symptoms have resolved. Hypokalemia --K 3.4 on AM labs. Ordered PO replacement. Mag wnl. Thank you for allowing hospitalist service to participate in the care of Ms Kemp. Plans for d/c this afternoon. Admission and Anticipated Discharge Date Admission Date: December 08, 2020 Supervising Physician Co-Signing Physician Notes RICARDO Supervision Note: I did not personally see or examine the patient today, but I verified all bains points of RICARDO Chavez's assessment and plan with the following exceptions/additions: None Subjective Patient evaluated this morning. Doing well. No cp, shortness of breath, fever, chills, cough, abdominal pain, nausea or vomiting reported. Plans for d/c this afternoon. Has used albuterol inhaler in the past but does not have one. Takes cetirizine for allergies but typically takes twice daily with her montelukast. Will give dose of Claritin. Instructed to continue incentive spirometer. Ready for d/c this afternoon. Review of Systems Review of Systems: All systems reviewed & are unremarkable except as noted in HPI & below Physical Exam Physical Exam: The patient appeared well nourished and normally developed. Sitting up in chair, NAD Head exam is normocephalic atraumatic Neck is without JVD, thyromegaly, or carotid bruits. Lungs are CTAB, no w/c/r. no cough, not tachypneic 92% on RA Cardiac exam, RRR, no r/m/g, no edema, cap refill <3 seconds Abd: BS+, non-tender, non-distended Extremities are nonedematous and both pedal pulses are present, dressing to lumbar spine c/d/i. . NVI, pulses palpable bilaterally, calves non-tender. equal strength dorsiflexion/plantar flexion. Neuro: no focal deficit Psych: AOx3 Results & Data Results & Data ([facility]) Vital Signs (Past 12 Hours) Vital Signs Temp Pulse Pulse Resp BP Pulse Ox 12/11/20 10:58 36.8 C 94 H 71 16 118/77 91 12/11/20 06:18 36.8 C 71 16 118/77 91 Laboratory Results 12/11/20 12/11/20 12/11/20 Range/Units 09:47 05:52 05:52 Sodium 140 (136-145) mmol/L Potassium 3.4 L (3.5-5.1) mmol/L Chloride 106 (98-107) mmol/L Carbon Dioxide 31 (21-32) mmol/L Anion Gap 3.0 (3-11) BUN 17 (7-18) mg/dl Creatinine 0.71 (0.6-1.2) mg/dl Est Cr Clr Drug Dosing 87.4 ml/min Est GFR ( Amer) 111.1 ml/min Est GFR (Non-Af Amer) 95.9 ml/min BUN/Creatinine Ratio 23.2 H (10-20) Glucose 104 H (70-99) mg/dl Estimat Average Glucose 123 mg/dl Hemoglobin A1c 5.9 H (4.5-5.6) % Calcium 9.1 (8.5-10.1) mg/dl Magnesium 2.4 (1.8-2.4) mg/dl PG Care Time/CCT Total # of Minutes Spent Total Time Spent with Patient: Total time spent is greater than 50% in coordination of care (as documented) at patient's floor/unit and/or counseling patient: Coding Level of Care Code 28476 Subseq Hosp Care Lvl 2 Diagnoses Neurogenic claudication due to lumbar spinal stenosis M48.062 Hyperlipidemia E78.5 Anxiety F41.9 Allergic bronchitis J45.909 Pre-diabetes R73.03 History of COVID-19 Z86.16
== END 2020-12-11 14:12 | disposition home or self-care (01) | DRG 454 ==
LOC: ASU 07:33 → 3E 11:41